=== PATIENT | female | born 1985 | race Caucasian/White ===

== ENCOUNTER 2017-04-03 14:50 | Observation (INO) ==
[2017-04-03] MEDS ORDERED: Betamethasone Acet/SodPhos 6 MG/ML MDV IM SCH (16:30)
[2017-04-03 16:41] LABS: Basophils % 0.2 %; Eosinophils # 0.2 K/mcL (0.0-0.6); Eosinophils % 1.9 %; Hematocrit 33.2 % (35.3-44.9); Hemoglobin 10.9 g/dL (11.5-15.4); Immature Granulocytes % 1.2 % (0-4); Lymphocytes # 1.7 K/mcL (0.6-4.6); Lymphocytes % 15.1 %; Mean Corpuscular HGB Conc 32.8 g/dL (31.6-35.5); Mean Corpuscular Hemoglobin 29.5 pg (28.0-33.3); Mean Platelet Volume 9.5 fL (9.4-12.4); Monocytes # 0.4 K/mcL (0.0-1.3); Monocytes % 3.8 %; Neutrophils # 8.7 K/mcL (1.6-8.9); Platelet Count 246 K/mcL (140-400); Red Blood Count 3.69 M/mcL (3.82-4.97); Red Cell Distribution Width 12.9 % (11.5-14.5); Segmented Neutrophils % 77.8 %
[2017-04-03 16:46] LABS: Amphetamine Screen,Urine Negative ng/mL (Cutoff=1000); Barbiturate Screen,Urine Negative ng/mL (Cutoff=200); Benzodiazepines Screen,Urine Negative ng/mL (Cutoff=200); Cannabinoid Screen,Urine Negative ng/mL (Cutoff = 50); Cocaine Screen,Urine Negative ng/mL (Cutoff= 300); Opiate Screen,Urine Negative ng/mL (Cutoff=300); Phencyclidine Screen,Urine Negative ng/mL (Cutoff=25)
--- NOTE | 2017-04-03 17:00 | OB/GYN Progress Note ---
Date of Encounter: 04/03/17 Time of Encounter: 16:20 - Assessment and Plan (1) 24 weeks gestation of Current Visit: Yes Status: Acute Continuous and toco monitoring No contractions noted on monitor and patient denies feeling any (2) Vaginal bleeding in Current Visit: Yes Status: Acute Patient reports one occurrence of bleeding 2 weeks ago. Currently denies bleeding but cervical length today was 3.33 cm with a 1.7 cm funnel noted. labor evaluation Will give course of steroids and repeat cervical length in 1 week. Subjective - Subjective Principal diagnosis: R/O PTL, vaginal bleeding 2 weeks prior Interval history: Rachael is a 31-year-old at 24w1d who was sent from the office to rule out labor. Patient reports some vaginal bleeding two weeks ago, none since. Reports positive movement, no leaking or vaginal bleeding. Dr. Nagel collected a gen pap in the office and no bleeding was visualized. Cervical length was completed showing a 3.33 cm length with a 1.7 cm funnel present. No FFN collected due to transvaginal ultrasound. No contractions noted on monitor and patient still denies any cramping or contractions. Dr. Nagel ordered a course of steroids and a repeat cervical length in 1 week. Patient will receive her first steroid injection today and return tomorrow for second dose. She is agreeable to this plan of care. Antepartum ROS: movement normal, no loss of fluid, no vaginal bleeding, no contractions Objective - Vital Signs Vital Signs: Intake and Output 04/03/17 04/03/17 04/03/17 07:59 15:59 23:59 Other: Weight 77 kg Patient Weight 04/03/17 23:59 Weight 77 kg - Exam FHR: category 1 FHR comments: 140 bpm, moderate variability. Appropriate for gestational age. No contractions noted with toco monitor. Patient denies contractions and cramping. Abdomen: Present: normal appearance, soft, gravid Uterus: Present: normal Cervical dilation: deferred - Labs Labs: Abnormal lab results WBC 11.2 K/mcL (4.3-11.1) H 04/03/17 16:27 RBC 3.69 M/mcL (3.82-4.97) L 04/03/17 16:27 Hgb 10.9 g/dL (11.5-15.4) L 04/03/17 16:27 Hct 33.2 % (35.3-44.9) L 04/03/17 16:27
== END 2017-04-03 17:08 | disposition home or self-care (01) ==
LOC: 1NENULAB
PROVIDERS: ADMIT Obstetrics & Gynecology; ATTEND Obstetrics & Gynecology

== ENCOUNTER 2017-05-09 16:24 | Inpatient (IN) ==
[2017-05-09 15:41] LABS: Amphetamine Screen,Urine Negative ng/mL (Cutoff=1000); Barbiturate Screen,Urine Negative ng/mL (Cutoff=200); Benzodiazepines Screen,Urine Negative ng/mL (Cutoff=200); Cannabinoid Screen,Urine Negative ng/mL (Cutoff = 50); Cocaine Screen,Urine Negative ng/mL (Cutoff= 300); Opiate Screen,Urine Negative ng/mL (Cutoff=300); Phencyclidine Screen,Urine Negative ng/mL (Cutoff=25)
[2017-05-09 15:57] LABS: Albumin 3.4 g/dL (3.5-5.7); Albumin/Globulin Ratio 1.1 (1.1-2.2); Bilirubin,Direct 0.1 mg/dL (0.0-0.2); Bilirubin,Indirect 0.2 mg/dL (0.0-1.2); Bilirubin,Total 0.3 mg/dL (0.3-1.0); Globulin 3.2 g/dL (2.4-3.5); Total Protein 6.6 g/dL (6.4-8.9)
[~2017-05-09 16:24] MED LIST: *HR* Nalbuphine 20 MG/ML AMPUL IVP PRN; Famotidine 20 MG/2 ML VIAL IVP PRN; Naloxone 0.4 MG/ML INJ IVP PRN; Ondansetron 4 MG/2 ML VIAL IVP PRN
[2017-05-09] MEDS ORDERED: Ringers Solution, Lactated 1,000 ML IVC SCH (16:30)
--- NOTE | 2017-05-09 16:51 | OB/GYN Progress Note ---
Date of Encounter: 05/09/17 Time of Encounter: 16:48 - Assessment and Plan (1) 29 weeks gestation of Current Visit: Yes Status: Acute (2) Itching Current Visit: Yes Status: Acute Pt c/o itching of palms and soles that is more intense at night. Concern for cholestasis. Will start ursodiol while waiting on bile acid results. LFT's normal. Vistaril for sleep and hydrocortisone for itching. Discharge home with precautions. Follow-up with Dr. Nagel. POC discussed with Dr. Jeff Subjective - Subjective Interval history: 31 year-old presenting at 29w2d with c/o severe itching. She reports the itching is getting worse and involves the palms of her hands and soles of her feet as well as her arms. THe itching has been waking her up several times at night. She denies any other complaints. Good FM. Antepartum ROS: movement normal, no loss of fluid, no vaginal bleeding, no contractions Objective - Vital Signs Vital Signs: Intake and Output 05/09/17 05/09/17 05/09/17 07:59 15:59 23:59 Other: Weight 81.7 kg Patient Weight 05/09/17 23:59 Weight 81.7 kg - Exam FHR: category 1 FHR comments: NST reactive for GA Auscultation: bilateral: normal Abdomen: Present: soft, gravid Uterus: Present: normal. Absent: tenderness Comments: No rash noted. Pt does have bruising from scratching - Labs Labs: Abnormal lab results Albumin 3.4 g/dL (3.5-5.7) L 05/09/17 15:17
== END 2017-05-09 17:19 | disposition home or self-care (01) | DRG 566 ==
LOC: 1NENULAB
PROVIDERS: ADMIT Obstetrics & Gynecology; ATTEND Obstetrics & Gynecology

== ENCOUNTER 2017-06-04 17:13 | Observation (INO) ==
--- NOTE | 2017-06-04 17:51 | OB/GYN Progress Note ---
Date of Encounter: 06/04/17 Time of Encounter: 17:48 - Assessment and Plan (1) 33 weeks gestation of Current Visit: Yes Status: Acute NST reactive. (2) Cholestasis during in third trimester Current Visit: Yes Status: Acute Given that her bile acids last week were 10 and she has had increased itching since, I will start ursodiol today. I discussed with pt that the itching often preceeds lab elevations so we will go ahead and repeat them today but also start treatment in anticipation of elevated labs. Pt agreeable to this plan. Will follow-up labs outpatient and start NST's if they are elevated. (3) Itching Current Visit: No Status: Acute Subjective - Subjective Principal diagnosis: itching Interval history: 31 year-old presenting at 33 weeks gestation with c/o severe itching of palms and soles of feet. She states the itching is more intense at night and has gotten worse since she was seen last week. Last week her bile acids were 10. Good FM. No contractions, leaking, bleeding, or other complaints. Antepartum ROS: movement normal, no loss of fluid, no vaginal bleeding, no contractions Objective - Exam FHR: category 1 FHR comments: NST reactive 125 BPM Auscultation: bilateral: normal Abdomen: Present: soft, gravid Uterus: Present: normal
[2017-06-04 18:03] LABS: Basophils % 0.4 %; Eosinophils # 0.3 K/mcL (0.0-0.6); Eosinophils % 2.7 %; Hematocrit 28.5 % (35.3-44.9); Hemoglobin 9.2 g/dL (11.5-15.4); Immature Granulocytes % 2.3 % (0-4); Lymphocytes # 1.9 K/mcL (0.6-4.6); Lymphocytes % 16.4 %; Mean Corpuscular HGB Conc 32.3 g/dL (31.6-35.5); Mean Corpuscular Hemoglobin 27.5 pg (28.0-33.3); Mean Corpuscular Volume 85.3 fL (83.0-100.0); Mean Platelet Volume 9.9 fL (9.4-12.4); Monocytes # 0.7 K/mcL (0.0-1.3); Monocytes % 6.4 %; Neutrophils # 8.1 K/mcL (1.6-8.9); Platelet Count 291 K/mcL (140-400); Red Blood Count 3.34 M/mcL (3.82-4.97); Red Cell Distribution Width 12.8 % (11.5-14.5); Segmented Neutrophils % 71.8 %
[2017-06-04 18:14] LABS: Alanine Aminotransferase 23 Units/L (7-52); Aspartate Amino Transferase 28 Units/L (13-39); BUN/Creatinine Ratio 20 (6-26); Blood Urea Nitrogen 12 mg/dL (6-20); Lactate Dehydrogenase 168 Units/L (140-271); Uric Acid 4.2 mg/dL (2.3-7.6); eGFR For African Americans > 60 (> 60); eGFR For Non-African Americans > 60 (> 60)
[2017-06-04 18:16] LABS: Amphetamine Screen,Urine Negative ng/mL (Cutoff=1000); Barbiturate Screen,Urine Negative ng/mL (Cutoff=200); Benzodiazepines Screen,Urine Negative ng/mL (Cutoff=200); Cannabinoid Screen,Urine Negative ng/mL (Cutoff = 50); Cocaine Screen,Urine Negative ng/mL (Cutoff= 300); Opiate Screen,Urine Negative ng/mL (Cutoff=300); Phencyclidine Screen,Urine Negative ng/mL (Cutoff=25)
== END 2017-06-04 18:14 | disposition home or self-care (01) ==
LOC: 1NENULAB
PROVIDERS: ADMIT Registered Nurse; ATTEND Registered Nurse

== ENCOUNTER 2017-07-11 12:03 | Inpatient (IN) ==
--- NOTE | 2017-07-11 12:37 | OB/GYN History & Physical ---
Date of Encounter: 07/12/17 Time of Encounter: 12:28 Assessment and Plan (1) 38 weeks gestation of Current visit: Yes Status: Acute Plan for induction of labor due to cholestasis. GBS +, treatment with PCN. Plan to re-evaluate cervix and consider Cytotec vs Pitocin. Anticipated . (2) Cholestasis during in third trimester Current visit: No Status: Acute Hx of pruritis during . Bile acid level of 20 on most recent labs (07/08/17). Plan for IOL. (3) Group B streptococcal infection during Current visit: Yes Status: Acute Treatment with penicillin. History of Present Illness Chief complaint: Induction of labor HPI: Ms. Mccabe is a 31 year old female at 38w2d that presents to L&D for induction of labor secondary to elevated bile acid. Patient called at home to come in for bile acid level of 20; history of severe pruritis since approx 32 weeks gestation. Bile acid levels have been monitored. She notes occasional nonpainful contractions. Good FM. No VB or LOF. Hx of drug use, notes sobriety for 1+ year. Known history of Hepatitis C. Labs: Blood type: O+ Varicella positive Rubella positive T. Pallidum negative HIV nonreactive Hepatitis B nonreactive GBS positive Past Med Surg Social Fam HX - Past Medical History Medical history: non-contributory Psychiatric history: no psych history - Past Surgical History Surgical History: no surgical history - Social History Smoking Status: Former smoker Smokeless Tobacco Status: No Alcohol use: none Drug use: opiates - Family History Paternal Grandmother Adopted: No Living Status: Still Living Hx Family Cardiac Disorders: No Hx Family Respiratory Disorders: No Hx Family Cancer: No Hx Family GI Disorders: No Hx Family Endocrine Disorder: No Hx Family Neuromuscular Disorders: No Hx Family Neurologic Disorders: No Hx Family HEENT Disorders: No Hx Family Autoimmune Disorders: No Obstetrical History - Pregnancies : 2 Para: 1 Term: 1 : 0 Ab's: 0 Livin Medications and Allergies DiphenhydraMINE [Benadryl] 25 mg PO PRN PRN 06/04/17 [History] Sjn351/FA/Omega3/Dha/Fish Oil [ Gummies] 2 tab PO DAILY 06/04/17 [ History] 3 Allergy/AdvReac Type Severity Reaction Status Date / Time No Known Allergies Allergy Verified 06/16/17 10:16 Review of System OB All systems PM: reviewed and no additional remarkable complaints except as stated Exam - Constitutional Constitutional: well developed, well nourished, no acute distress - HEENT HEENT: Normocephaly, Mucus Membranes Moist - Neck Neck exam: full ROM - Lungs Respiratory exam: CTAB - Cardiovascular Cardiovascular exam: RRR, +S1, +S2 - Abdomen Abdomen: Present: bowel sounds normal, gravid, non tender - Extremities Extremities exam: normal inspection (other than 4 visible scabs on bilateral shins without erythema or signs of infection.), warm, radial pulses palpable and symmetrical - Uterus Uterus exam: Present: normal size, normal contour Results Result Diagrams: 07/11/17 13:15 All other labs normal. - Attending Attestation fuad mancilla md facog
[2017-07-11] MEDS ORDERED: EPHEDrine 50 MG/ML VIAL IVP PRN (12:57)
[2017-07-11] MEDS ORDERED: Ringers Solution, Lactated 500 ML IVC ONE (12:57)
[2017-07-11] MEDS ORDERED: Epidural Premix (fent/bupiv) 110 ML EP SCH (13:00)
[2017-07-11] MEDS ORDERED: *HR* Nalbuphine 10 MG/ML AMPUL IVP PRN (13:02)
[2017-07-11] MEDS ORDERED: Metoclopramide 10 MG/2 ML VIAL IVP PRN (13:02)
[2017-07-11] MEDS ORDERED: Naloxone 0.4 MG/ML INJ IVP PRN (13:02)
[2017-07-11] MEDS ORDERED: Ondansetron 4 MG/2 ML VIAL IVP PRN (13:02)
[2017-07-11] MEDS ORDERED: Famotidine 20 MG/2 ML VIAL IVP PRN (13:02)
[2017-07-11] MEDS ORDERED: Penicillin G Potassium 5,000,000 UNIT in 0.9 % Sodium Chloride Mini Bag 100 ML IVPB ONE (13:02)
[2017-07-11] MEDS ORDERED: Ringers Solution, Lactated 1,000 ML ONE ×2 (13:30→19:36)
[2017-07-11 13:40] LABS: Basophils # 0.1 K/mcL (0.0-0.2); Basophils % 0.5 %; Eosinophils # 0.2 K/mcL (0.0-0.6); Eosinophils % 2.2 %; Hematocrit 31.7 % (35.3-44.9); Hemoglobin 10.5 g/dL (11.5-15.4); Immature Granulocytes % 1.4 % (0-4); Lymphocytes # 1.5 K/mcL (0.6-4.6); Lymphocytes % 14.2 %; Mean Corpuscular HGB Conc 33.1 g/dL (31.6-35.5); Mean Corpuscular Hemoglobin 26.1 pg (28.0-33.3); Mean Platelet Volume 10.5 fL (9.4-12.4); Monocytes # 0.6 K/mcL (0.0-1.3); Monocytes % 5.5 %; Neutrophils # 7.9 K/mcL (1.6-8.9); Platelet Count 287 K/mcL (140-400); Red Blood Count 4.03 M/mcL (3.82-4.97); Red Cell Distribution Width 13.3 % (11.5-14.5); Segmented Neutrophils % 76.2 %
[2017-07-11 13:41] LABS: Mean Corpuscular Volume 78.7 fL (83.0-100.0)
[2017-07-11] MEDS ORDERED: Oxytocin 20 units/ LR 1000 mL 20 UNIT/1,000 ML BAG IVC SCH (13:45)
[2017-07-11 15:42] LABS: Amphetamine Screen,Urine Negative ng/mL (Cutoff=1000); Barbiturate Screen,Urine Negative ng/mL (Cutoff=200); Benzodiazepines Screen,Urine Negative ng/mL (Cutoff=200); Cannabinoid Screen,Urine Negative ng/mL (Cutoff = 50); Cocaine Screen,Urine Negative ng/mL (Cutoff= 300); Opiate Screen,Urine Negative ng/mL (Cutoff=300); Phencyclidine Screen,Urine Negative ng/mL (Cutoff=25)
[2017-07-11] MEDS ORDERED: Epidural Premix (fent/bupiv) 110 ML EP ONE (15:50)
--- NOTE | 2017-07-11 16:00 | Anesthesia Evaluation PreOp ---
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.) Anesthesia History: No Prior Anesthetic Complications : Yes Alcohol Use: none Drug use: opiates Medications and Allergies DiphenhydraMINE [Benadryl] 25 mg PO PRN PRN 06/04/17 [History] Frm244/FA/Omega3/Dha/Fish Oil [ Gummies] 2 tab PO DAILY 06/04/17 [ History] 3 Allergy/AdvReac Type Severity Reaction Status Date / Time No Known Allergies Allergy Verified 06/16/17 10:16 - Meds/Allergy Pre-op Review Medications Reviewed: Yes Allergies Reviewed: Yes Beta Blockers on Current Med List: No Anesthesia Results - Labs 07/11/17 13:15 Anesthesia Exam O2 Sat Height 1.65 m Height 1.65 m Weight 88 kg Weight 88 kg NPO (# of Hours): 6 Pain Scale: 5 Pain Scale Used: Numeric (1 - 10) - HEENT Pupil (Motor): Pupils equal Mallampati: II Teeth: Normal Oral Opening: Greater than 3 - ARCHEOLOGIST CLASSICAL LOC: Oriented ARCHEOLOGIST CLASSICAL Motor: Normal RUE, Normal LUE, Normal RLE, Normal LLE, Normal Face ARCHEOLOGIST CLASSICAL Sensory: Normal: RUE, LUE, RLE, LLE, Face - Cardiac Rhythm: Regular Murmur: None JVD: No Carotid Bruit: No - Pulmonary Breath Sounds: bilateral Clear Respiratory Effort: Symmetrical Anesthesia Assess/Plan ASA Score: 2 Modified Manuel Scale for Level of Consciousness: Cooperative, oriented, and tranquil Anesthetic Plan: General (plan b), Regional (plan a) Autologous Blood: Yes Monitoring Plan: Standard Monitors
[2017-07-11] MEDS: Penicillin G Potassium 2,500,000 UNIT in 0.9 % Sodium Chloride 100 ML IVPB SCH ×2 (17:40→21:58)
--- NOTE | 2017-07-11 19:01 | OB Labor Progress Note ---
Date of Encounter: 07/11/17 Time of Encounter: 18:58 Labor Progress Note - Subjective Subjective: Pt feeling stronger contractions - Cervix Cervix: 3/80/-1 per RN - Heart Tones Heart Tones: 135/moderate/+accels/-decels - [place]: 2-5 - Plan Plan: Continue pitocin per policy epidural and nubain as desires pcn for gbs anticipate
[2017-07-11] MEDS ORDERED: Ringers Solution, Lactated 1,000 ML IVC SCH (19:45)
--- NOTE | 2017-07-11 20:06 | Anesthesia Procedures ---
Date of Encounter: 07/11/17 Time of Encounter: 20:04 Procedures: Anesthesia - Epidural/Spinal Patient ID/Chart reviewed: Yes Patient examined: Yes OB Eval: Gestational age: 38.2 OB Eval: : 2 OB Eval: Hx Para: 1 OB Eval: Dilated at (cm): 3 OB Eval: Contractions: Non-stressed pattern Consent Obtained: Yes Supplemental Oxygen: None/Room Air Site Prep: Aseptic Technique, Sterile prep and drape, Povidone-Iodine 1% Patient position: upright Local Anesthetic: Lidocaine 1% Amount of Local Anesthetic used: 3 Touhy Needle Gauge: 18 Touhy Needle Depth (cm): 9 Catheter Depth at Skin (cm): 20 Test Dose (1.5% Lido + Epi): Volume given (mls): 5 Test Dose Result: Negative Loading Dose: Other: 10mls of epidural pharm bag premix Loading Dose Administered: Thru Catheter Infusion Med: 0.125% Bupivacaine w/ 2 mcg/ml Fentanyl Infusion Rate (mls/hr): 14 ([id number]) Catheter Secured in Place: Tegaderm, Tape Interspace Used: L4-L5 Loss of Resistance (HARVEY): Yes Blood: No CSF: No Paresthesia: No Procedure: pt tolerated procedure well. no complications. vss. fhr stable. see nursing notes for complete vitals.
[2017-07-11] MEDS ORDERED: Acetaminophen 325 MG TABLET PO ONE (20:17)
--- NOTE | 2017-07-11 20:54 | OB Labor Progress Note ---
Date of Encounter: 07/11/17 Time of Encounter: 20:52 Labor Progress Note - Subjective Subjective: comfortable with epidural - Cervix Cervix: 4/90/-1 - Heart Tones Heart Tones: 130/moderate/+accels/-decels - [place]: 2-5 - Interventions Interventions: AROM for small amount of clear fluid - Plan Plan: Continue pitocin per policy PCN for GBS Anticipate
[2017-07-11] MEDS ORDERED: Mag Hydrox/Al Hydrox/Simeth 30 ML UDC PO ONE (22:12)
[2017-07-12] MEDS ORDERED: Epidural Premix (fent/bupiv) 110 ML EP ONE (01:34)
--- NOTE | 2017-07-12 02:36 | OB/GYN Procedure Note ---
Delivery - Delivery Date: 07/12/17 Provider: Kong Nagel Intrapartum events: none Delivery induction: oxytocin Delivery augmentation: rupture of membranes Delivery monitor: external FHT, external uterine Anesthesia: epidural Quantitated Blood Loss: 50 - Infant (s) Infant A Infant Delivery Date: 07/12/17 Infant Delivery Time: 01:51 Presentation: vertex Position: OA Route of delivery: Gender: Male Viability: Viable Pounds: 8 at 1 minute: 8 at 5 mins: 9 Shoulder Dystocia: not encountered Specimens collected: cord blood Placenta: spontaneous Cord: nuchal cord, nuchal reduced - Repair Episiotomy: none Laceration Description: Perineal - 1st Degree - Complications Delivery complications: none - Disposition Mom disposition: stable in LDR - Comments Comments: Patient progressed to complete and on the perineum. Delivered a live male weighing 8 pounds at 0 151. 3625 g. Apgars were 8 and 9. Position was occiput anterior. Placenta delivered at 0206. EBL was 50 mL. Patient had epidural. First-degree perineal laceration was repaired with 3-0 Monocryl.
[2017-07-12] MEDS ORDERED: Acetaminophen 325 MG TABLET PO ONE (02:40)
[2017-07-12] MEDS ORDERED: Measles/Mumps/Rubella Vacc 0.5 ML VIAL SQ PRN (03:44)
[2017-07-12] MEDS ORDERED: Oxytocin 20 units/ LR 1000 mL 20 UNIT/1,000 ML BAG IVC SCH (03:44)
[2017-07-12] MEDS ORDERED: Acetaminophen 325 MG TABLET PO PRN (03:44)
[2017-07-12] MEDS ORDERED: Sennosides 8.6 MG TABLET PO PRN (03:44)
[2017-07-12] MEDS: Ibuprofen 600 MG TABLET PO PRN ×3 (06:25→20:55)
[2017-07-12] MEDS: Mag Hydrox/Al Hydrox/Simeth 30 ML UDC PO PRN ×3 (06:38→18:43)
[2017-07-12] MEDS: Prenatal Vit/FA 1 EACH TABLET PO SCH (08:06)
[2017-07-12] MEDS ORDERED: FISH OIL T PO SCH (09:00)
[2017-07-12] MEDS ORDERED: DHA PO SCH (09:00)
[2017-07-12] MEDS ORDERED: OMEGA3 PO SCH (09:00)
[2017-07-12] MEDS ORDERED: [UNRECOGNIZED DRUG - OTHER] PO SCH (09:00)
[2017-07-13 07:47] VITALS: BP 106/69
[2017-07-13 08:25] LABS: Basophils % 0.3 %; Eosinophils # 0.3 K/mcL (0.0-0.6); Eosinophils % 2.5 %; Hematocrit 25.9 % (35.3-44.9); Immature Granulocytes % 1.4 % (0-4); Lymphocytes # 2.3 K/mcL (0.6-4.6); Lymphocytes % 18.9 %; Mean Corpuscular HGB Conc 32.4 g/dL (31.6-35.5); Mean Corpuscular Hemoglobin 25.9 pg (28.0-33.3); Mean Corpuscular Volume 79.9 fL (83.0-100.0); Mean Platelet Volume 10.3 fL (9.4-12.4); Monocytes # 0.7 K/mcL (0.0-1.3); Monocytes % 5.8 %; Neutrophils # 8.8 K/mcL (1.6-8.9); Nucleated Red Blood Cells 0.3 /100 WBC (0); Platelet Count 250 K/mcL (140-400); Red Blood Count 3.24 M/mcL (3.82-4.97); Red Cell Distribution Width 13.3 % (11.5-14.5); Segmented Neutrophils % 71.1 %
[2017-07-13 08:26] LABS: Hemoglobin 8.4 g/dL (11.5-15.4)
[2017-07-13] MEDS: Prenatal Vit/FA 1 EACH TABLET PO SCH (09:17)
[2017-07-13] MEDS: Ibuprofen 600 MG TABLET PO PRN (09:17)
--- NOTE | 2017-07-13 09:38 | Discharge Summary ---
Date of Encounter: 07/13/17 Time of Encounter: 09:44 - Discharge Diagnosis (1) Vaginal delivery Priority: Primary Status: Acute Comments: Doing well. in arms, well. Tolerating regular diet. Ambulating and voiding without difficulty. States lochia light and without clots. Mild cramping well controlled with Ibuprofen. Will discharge today to guest status. - Discharge Medications Prescriptions: Ibuprofen [Motrin] 600 mg PO Q6HR PRN #30 tablet PRN Reason: Cramping Ferrous Sulfate 325 mg PO DAILY #60 tablet Home Medications: DiphenhydraMINE [Benadryl] 25 mg PO Q6H PRN 06/04/17 [History] Hft521/FA/Omega3/Dha/Fish Oil [ Gummies] 2 tab PO DAILY 06/04/17 [ History] Acetaminophen [Tylenol] 650 mg PO Q6HR PRN tablet 07/13/17 [Rx] Ferrous Sulfate 325 mg PO DAILY #60 tablet 07/13/17 [Rx] Ibuprofen [Motrin] 600 mg PO Q6HR PRN #30 tablet 07/13/17 [Rx] Mupirocin [Bactroban Oint] 1 appl TP BID tube 07/13/17 [Rx] Allergies/Adverse Reactions: 3 Allergy/AdvReac Type Severity Reaction Status Date / Time No Known Allergies Allergy Verified 06/16/17 10:16 Data Procedures and tests throughout hospitalization: Laboratory Tests 07/11/17 07/11/17 07/13/17 13:15 13:15 07:46 WBC 10.3 12.4 H RBC 4.03 3.24 L Hgb 10.5 L 8.4 L D Hct 31.7 L 25.9 L MCV 78.7 L D 79.9 L MCH 26.1 L 25.9 L MCHC 33.1 32.4 RDW 13.3 13.3 Plt Count 287 250 MPV 10.5 10.3 Immature Gran % 1.4 1.4 Seg Neutrophils % 76.2 71.1 Lymphocytes % 14.2 18.9 Monocytes % 5.5 5.8 Eosinophils % 2.2 2.5 Basophils % 0.5 0.3 Neutrophils # 7.9 8.8 Lymphocytes # 1.5 2.3 Monocytes # 0.6 0.7 Eosinophils # 0.2 0.3 Basophils # 0.1 0.0 Nucleated RBCs/100 WBC 0.3 H Urine Opiates Screen Negative Ur Barbiturates Screen Negative Ur Phencyclidine Scrn Negative Ur Amphetamines Screen Negative U Benzodiazepines Scrn Negative Urine Cocaine Screen Negative U Marijuana (THC) Screen Negative Labs on day of discharge: Labs from last 24 hours 07/13/17 07:46 WBC 12.4 H RBC 3.24 L Hgb 8.4 L D Hct 25.9 L MCV 79.9 L MCH 25.9 L MCHC 32.4 RDW 13.3 Plt Count 250 MPV 10.3 Immature Gran % 1.4 Seg Neutrophils % 71.1 Lymphocytes % 18.9 Monocytes % 5.8 Eosinophils % 2.5 Basophils % 0.3 Neutrophils # 8.8 Lymphocytes # 2.3 Monocytes # 0.7 Eosinophils # 0.3 Basophils # 0.0 Nucleated RBCs/100 WBC 0.3 H Date of admission: 07/11/17 12:03 Primary care physician: PCP BRITANY Consults: 07/12/17 03:44 Consult to Manager Of Development [CONS] Routine Comment: Vaginal delivery, consult needed Consult to Laundry Tech [CONS] Routine Reason for SW Consult: past opiate abuse Discharging clinician: Vicky Licona Anticipated date of discharge: 07/13/17 - Patient Status Disposition: Home, Self-Care Condition: Good Functional capacity at discharge: independent ambulation Overall status at discharge: patient is progressing back to baseline - Discharge Instructions Follow Up With: NONE,PCP [Primary Care Provider] - Kong Nagel MD [Partnered Physician] - - Diet and Activity Activity: resume usual activities as tolerated Diet: regular diet Hospital Course Reason for admission: induction of labor, IUP at term Delivery: Episiotomy: none Laceration: 1st degree Other procedures: none complications: none Discharge diagnosis: IUP at term delivered baby: male Time spent discussing smoking cessation with patient: 3 to 10 minutes Time Attestation: Total time spent providing and/or coordinating discharge services: Time Spent: Less than 30 minutes Exam - Constitutional Vitals: Temp Pulse Resp BP Pulse Ox 97.9 F 54 16 106/69 98 07/13/17 07:47 07/13/17 07:47 07/13/17 07:47 07/13/17 07:47 07/12/17 19:31 General appearance IM: cooperative, A&O X 3, pleasant, no acute distress, answers questions appropriately - Respiratory Respiratory exam: Present: CTAB - Cardiovascular Cardiovascular exam IM: Present: RRR - GI/Abdominal GI/Abdominal exam IM: normal bowel sounds - Rectal Rectal exam: deferred - Uterine Tone: Firm Uterus Position: 1 Finger Below Umbilicus, Midline - Extremities Exam Extremities exam IM: Present: full ROM, normal inspection, radial pulses palpable and symmetrical - Neurological Exam Neurological exam: alert, normal gait, oriented X3
[2017-07-13] MEDS: Mag Hydrox/Al Hydrox/Simeth 30 ML UDC PO PRN (10:45)
== END 2017-07-13 11:07 | disposition home or self-care (01) | DRG 560 ==
LOC: 1NENULAB → OBSVTOIN 12:03 → 1NENUOBS 07-12 04:02
PROVIDERS: ADMIT Obstetrics & Gynecology; ATTEND Obstetrics & Gynecology